=== PATIENT | female | born 1940 | race Hispanic/Latino ===

== ENCOUNTER → 2021-06-22 | Outpatient (CLI) | payer OTHER | LOC: MAMMO 12:20 | PROVIDERS: ATTEND Internal Medicine | DX: Z12.31 Encounter for screening mammogram for malignant neoplasm of breast (principal); Z13.820 Encounter for screening for osteoporosis | CPT/HCPCS: 77067; 77080 ==

== ENCOUNTER → 2025-02-23 | Outpatient (REF) | payer OTHER | LOC: MAMMO 10:07 | PROVIDERS: ATTEND Internal Medicine | DX: Z12.31 Encounter for screening mammogram for malignant neoplasm of breast (principal) | CPT/HCPCS: 77067 ==